=== PATIENT | female | born 1955 | race African-American/Black ===

== ENCOUNTER → 2021-03-09 | Outpatient (CLI) | payer OTHER ==
[~2021-03-09] MED LIST: ALBU18HF2 IH; METH4TAB17 PO; T3 PO
== END | disposition home or self-care (01) ==
LOC: LAB 07:02
PROVIDERS: ATTEND Internal Medicine Gastroenterology
DX: Z01.812 Encounter for preprocedural laboratory examination (principal); Z20.822 Contact with and (suspected) exposure to COVID-19
CPT/HCPCS: 87426

== ENCOUNTER → 2021-03-12 | Day surgery (SDC) | payer MEDICARE, MEDICAID ==
[~2021-03-12] VITALS: Ht 154.9 cm; Wt 112.9 kg
[~2021-03-12] MED LIST changes: +MIDAZOLAM HCL 5 MG/5 ML VIAL ONE; +PROPOFOL 200MG/20ML VIAL IV ONE; +SODIUM CHLORIDE 0.9% 1,000 ML IV SCH
== END | disposition home or self-care (01) ==
LOC: OR 09:42
PROVIDERS: ATTEND Internal Medicine Gastroenterology
DX: K21.9 Gastro-esophageal reflux disease without esophagitis (principal); K29.50 Unspecified chronic gastritis without bleeding; K31.89 Other diseases of stomach and duodenum; R11.2 Nausea with vomiting, unspecified; D64.9 Anemia, unspecified; E66.01 Morbid (severe) obesity due to excess calories; J45.909 Unspecified asthma, uncomplicated; Z98.84 Bariatric surgery status; Z79.899 Other long term (current) drug therapy; Z98.890 Other specified postprocedural states; Z88.8 Allergy status to other drugs, medicaments and biological substances
CPT/HCPCS: 43239; 82962; 88305; 88312; 88313; 93005; C1893; J2250; J2704